=== PATIENT | female | born 1980 | race Two or more races ===

== ENCOUNTER 2017-02-10 05:29 | Day surgery (SDC) | payer BC ==
[~2017-02-10] VITALS: Ht 167.6 cm; Wt 75.0 kg
[2017-02-10 06:39] VITALS: Ht 167.6 cm; Wt 75.0 kg
[2017-02-10 06:59] VITALS: BP 106/59; PULSE 60; RESP 16
[2017-02-10] MEDS ORDERED: FENTAnyl 50 MCG/ML VIAL ONE (07:39)
[2017-02-10] MEDS ORDERED: MIDAZOLAM 1 MG/ML 2 ML INJ ONE ×2 (07:39)
--- NOTE | 2017-02-10 07:59 | CONS ---
DATE OF ADMISSION: 02/10/2017 DATE OF CONSULTATION: TYPE OF CONSULTATION: Preoperative gastroenterology. Dear Dr. Cardenas: I thank you very much for this kind referral. HISTORY OF PRESENT ILLNESS: Ms. Dedra Latham is a 36-year-old female patient who has been refer red to me for further evaluation of abdominal pain. The patient states she has upper abdominal pain , not responding to therapy with Nexium. There is no past history of peptic ulcer disease. She is not taking any nonsteroidal anti-inflammatory agents. Her appetite has been good and she is not los ing any weight. There is no history of gallstones. She does not have any fever, chills, or jaundic e. There is no history of liver disease. The patient denies any change in the bowel habit or recta l bleeding. There is no past history of inflammatory bowel disease. She is not a hypertensive or d iabetic. She does not have any heart disease or lung problem. There is no history of kidney diseas e. SOCIAL HISTORY: She is a nonsmoker. She does not abuse alcohol. FAMILY HISTORY: Negative for gastrointestinal tract neoplasm. ALLERGIES: THERE IS NO HISTORY OF SIGNIFICANT DRUG ALLERGY. MEDICATIONS: Nexium 24 hours. PHYSICAL EXAMINATION: VITAL SIGNS: She is 5 feet 6 inches tall and she weighs 160 pounds. HEART: Examination of the heart reveals normal first and second heart sounds. LUNGS: Clear. ABDOMEN: Soft without any distention. Liver and spleen are not palpable. There are no masses. Th ere is no focal tenderness. Normal bowel sounds are heard. CENTRAL NERVOUS SYSTEM: Does not reveal any focal neurological deficit. IMPRESSION: Upper abdominal pain, not responding to therapy with Nexium. PLAN: Abdominal ultrasound and upper endoscopy for further evaluation. The procedures and possible complications are well explained to the patient. She understands and co nsents to the procedure. I thank you once again. With warmest personal regards, Dictated By: CLAUDE MANSFIELD MD GD/JOHANNA Conf#: [id number] DID#: [id number] CC: CLAUDE MANSFIELD MD;*EndCC*
[2017-02-10 08:05] VITALS: BP 99/55; PULSE 66; RESP 16
--- NOTE | 2017-02-10 09:28 | GILP ---
DATE OF PROCEDURE: NAME OF PROCEDURE: Esophagogastroduodenoscopy and biopsy. SURGEON: Claude Chong MD PREOPERATIVE DIAGNOSIS: Abdominal pain. POSTOPERATIVE DIAGNOSES: 1. Gastritis with erosions. 2. Gastric mucosal biopsies were taken for Helicobacter pylori test. INDICATION FOR THE PROCEDURE: Ms. Dedra Latham is a 36-year-old female patient who had upper ab dominal pain not responding to therapy. The patient was scheduled for endoscopic examination for fu rther evaluation. The procedure and possible complications were well explained to the patient, she understood and cons ented to the procedure. DESCRIPTION OF PROCEDURE: Under the influence of fentanyl and Versed, the gastroscope was carefully introduced into the esophagus, and under direct vision, it was advanced to the stomach and through the pylorus into the duodenal bulb and descending duodenum. FINDINGS: ESOPHAGUS: The mucosa was normal. STOMACH: The patient had gastritis with erosions. Gastric mucosal biopsies were taken for H pylori test. DUODENUM: Normal. The patient tolerated the procedure very well and there was no complication from the procedure. At the end of the procedure, she was awake with stable vital signs and she was discharged home to the [facility] her family. IMPRESSION: 1. Gastritis with erosions. 2. Gastric mucosal biopsies were taken for Helicobacter pylori test. PLAN: 1. Nexium 24-hour p.o. every morning. 2. Bentyl 10 mg p.o. t.i.d. p.r.n. for pain. 3. Await H pylori and abdominal ultrasound report. Dictated By: CLAUDE ROJO/JOHANNA Conf#: [id number] DID#: [id number]
== END 2017-02-10 09:08 | disposition home or self-care (01) ==
LOC: GIL 05:29
PROVIDERS: ATTEND Internal Medicine Gastroenterology
DX: K29.60 Other gastritis without bleeding (principal)
CPT/HCPCS: 43239; 84703; 87081; J2250; J3010; Z7610